=== PATIENT | female | born 1980 | race Caucasian/White ===

== ENCOUNTER 2016-07-09 13:59 | Outpatient (CLI) | payer MEDICAID ==
[~2016-07-09] VITALS: Ht 154.9 cm; Wt 81.5 kg
[2016-07-09 14:03] VITALS: Ht 154.9 cm; Wt 81.5 kg
[2016-07-09] MEDS ORDERED: PRENAT PO (14:05)
--- NOTE | 2016-07-09 15:19 | RADRPT ---
PROCEDURE: Limited obstetric ultrasound CLINICAL INDICATION: Pain , PTL TECHNIQUE: Multiple transverse and longitudinal grayscale images of the pelvis were obtained peters sabdominally and transvaginally.. COMPARISON: same day FINDINGS: The cervix is closed with a length of 5.1 cm. There is a single viable intrauterine gestation. Cardiac activity is present with 148 beats per min [place]. There is a transverse maternal right presentation. The placenta is posterior. There is no evidence for an abruption or placenta previa. There is a normal amount of amniotic fluid with a MVP = 4.6 cm. RPTAT: AA IMPRESSION: Cervix length measures 5.1 cm. .Dawit Causey MD, MD Date Time Electronically viewed and signed by .Dawit Causey MD, MD on 07/09/2016 15:18 .S/
--- NOTE | 2016-07-09 15:41 | QN ---
Documentation Comment OB triage: 23+wks Decreased movments currently feels the baby moves No LOF No CTxs NL ultrasound NSt reassuring for gA patient is discharged with precautions AUNDREA CHANEY M.D. July 09, 2016 15:41
--- NOTE | 2016-07-09 15:53 | TRIAGE ---
OB Triage Datetime Report Generated by CPN: 07/09/2016 15:52 Datetime: 07/09/2016 14:43 Labor Evaluation Frequency: 0 Monitor Mode: External Heart Rate FHR Baseline Rate: 145 Monitor Mode: External US FHR Baseline Changes: No Baseline Change Variability: Moderate 6-25 bpm Accelerations: 15X15 Decelerations: None Category: Category I Datetime: 07/09/2016 14:09 Labor Evaluation Frequency: 0 Monitor Mode: External Heart Rate FHR Baseline Rate: 140 Monitor Mode: External US FHR Baseline Changes: No Baseline Change Variability: Moderate 6-25 bpm Accelerations: 15X15 Decelerations: None Category: Category I Pain Assessment Pain Presence: None/Denies Datetime: 07/09/2016 14:08 Stage of : OB Triage Maternal Assessment Level of Consciousness: Fully Conscious DTR's/Clonus: DTRs 2+; No Clonus Headache: Denies Blurred Vision: No Respiratory Effort: Unlabored; Regular Rhythm; Equal Expansion Breath Sounds, Left: Clear and Equal Breath Sounds, Right: Clear and Equal Nausea/Vomiting: Denies RUQ Epigastric Pain: Denies Facial Edema: None Fall Risk Assessment History of Falling: (0) No Secondary Diagnosis: (0) No Ambulatory Aid: (0) Bedrest/Nurse Assist IV Therapy: (0) No Gait: (0) Normal/Bedrest/Immobile Mental Status: (0) Oriented to Own Ability Fall Score: 0 Fall Risk Score Definition: No Risk: No action required Datetime: 07/09/2016 14:07 EGA: 23.2 Patient Complaints: Cramping Time Provider Notified: 07/09/2016 14:10 Provider Notified: SHIV Datetime: 07/09/2016 13:50 Time of Arrival: 07/09/2016 13:50 Arrived By: Ambulatory Arrived From: Home Chief Complaint: PAIN AND DECREASED MOVEMENT Movement: Decreased Contractions: Denies/Absent Rupture of Membranes: Denies Vaginal Bleeding: None Vaginal Discharge: Denies Recent Sexual Intercouse: Denies Abdominal Trauma: Not Applicable Patient Complaints: Other Time Provider Notified: 07/09/2016 14:10 Provider Notified: SHIV Initial Plan: FABIENNE GUTIERREZ
== END 2016-07-09 15:50 | disposition home or self-care (01) ==
LOC: OBT 13:59 → L-D 14:00 → OBT 15:50
PROVIDERS: ATTEND Obstetrics & Gynecology
DX: O36.8120 Decreased fetal movements, second trimester, not applicable or unspecified (principal); Z3A.23 23 weeks gestation of pregnancy
CPT/HCPCS: 76815; 76817; Z7500; G0463